=== PATIENT | female | born 1965 ===

== ENCOUNTER 2018-07-18 19:31 | Observation (INO) | payer MEDICAID | END 2018-07-20 16:04 | disposition home or self-care (01) | LOC: C.9E 07-19 00:57 → C.ER 19:31 → C.5S 07-19 05:20 | DX: R07.89 Other chest pain (principal); M32.9 Systemic lupus erythematosus, unspecified; I10 Essential (primary) hypertension; D64.9 Anemia, unspecified; R06.02 Shortness of breath; Z79.899 Other long term (current) drug therapy; Z83.3 Family history of diabetes mellitus ==

== ENCOUNTER 2018-08-12 10:24 | Outpatient (CLI) | payer MEDICAID | END 2018-08-12 10:25 | disposition home or self-care (01) | LOC: C.CARD 10:24 | DX: R07.9 Chest pain, unspecified (principal); R06.02 Shortness of breath ==